=== PATIENT | male | born 1985 | race Two or more races ===

== ENCOUNTER 2016-07-28 23:16 | Emergency (ER) | payer OTHER ==
[~2016-07-28] VITALS: Ht 180.3 cm; Wt 124.7 kg
[2016-07-28] MEDS ORDERED: LEXAPRO (23:36)
[2016-07-28] MEDS ORDERED: TRAZADONE (23:36)
--- NOTE | 2016-07-28 23:38 | NUR ---
Pt biba, pt admits to heavy etoh, suspected fall. Abrasion noted to R. knee. No other trauma noted. Pt repeating multiple times " i didnt call you guys". Pt c/o RUQ pain. Pt seen by . Labs drawn and sent. Pt resting in position of comfort for self. Resp even and unlabored. No obvious signs of distress.
[2016-07-28 23:54] LABS: BASOPHILS # (AUTO) 0.1 K/uL (0.0-8.0); BASOPHILS % (AUTO) 0.5 % (0.0-2.0); EOSINOPHILS # (AUTO) 0.1 K/uL (0.0-0.7); EOSINOPHILS % (AUTO) 1.4 % (0.0-7.0); HEMATOCRIT 41.2 % (40-50); HEMOGLOBIN 13.8 G/DL (14.0-18.0); LYMPHOCYTES # (AUTO) 2.5 K/UL (0.8-4.8); MEAN CORPUSCULAR HEMOGLOBIN 28.5 UUG (27.0-31.0); MEAN CORPUSCULAR HGB CONC 34 g/dL (32.0-37.0); MEAN CORPUSCULAR VOLUME 84.8 FL (82.0-92.0); MONOCYTES % (AUTO) 9.7 % (0.0-11.0); NEUTROPHILS # (AUTO) 6.5 K/UL (1.8-8.9); NEUTROPHILS % (AUTO) 64.4 % (38.5-71.5); PLATELET COUNT (AUTO) 338 K/UL (150-450); RED BLOOD CELL COUNT(AUTO) 4.86 MIL/UL (4.7-6.1); WHITE BLOOD COUNT (AUTO) 10.2 K/UL (4.0-11.2)
[2016-07-29 00:24] LABS: *AMPHETAMINE, URINE NEGATIVE (NEGATIVE); *BARBITURATE, URINE NEGATIVE (NEGATIVE); *CANNABINOID, URINE NEGATIVE (NEGATIVE); *COCCAINE, URINE NEGATIVE (NEGATIVE); *OPIATE, URINE NEGATIVE (NEGATIVE); *PHENCYCLIDINE SCREEN,URINE NEGATIVE (NEGATIVE)
[2016-07-29 00:27] LABS: BILIRUBIN,DIRECT 0.1 mg/dL (0.0-0.2); BILIRUBIN,TOTAL 0.2 mg/dL (0.2-1.0); POTASSIUM 3.4 mmol/L (3.5-5.1); TOTAL PROTEIN, SERUM 7.9 g/dL (6.4-8.2)
--- NOTE | 2016-07-29 00:30 | NUR ---
Pt repeatedly stating " I get delirium really bad. I have seizures. I dont want to have delirium. I dunno I just start shaking and I dont want to have a seizure." Pt informed he didnt need to worry about it right now. Informed him I would be monitoring him. Pt sts " but normally they give me a banana bag or something and like ativan because librium doesnt work." Informed him that the doctor did not order anything else at this time. Pt sts "well I need ativan or something because I'm like anxious." notified pt requesting ativan.
--- NOTE | 2016-07-29 00:40 | NUR ---
Pt informed the doctor wanted his lab results before he ordered any ativan at this time.
--- NOTE | 2016-07-29 01:08 | NUR ---
Pt resting in position of comfort for self with eyes closed, appears to be sleeping. Resp even and unlabored. No obvious signs of distress at this time
[2016-07-29] MEDS ORDERED: TDAP DIPH,PERTUSS,TET VAC/PF 0.5 ML DISP.SYRIN IM ONE ×2 (01:15→02:21)
[2016-07-29] MEDS ORDERED: NEOMY/BACITRA/POLYMYXIN B OINT UD PACKET TP ONE ×2 (01:15→02:23)
--- NOTE | 2016-07-29 02:22 | NUR ---
Woke pt up. Pt able to ambulate with steady gait. Abrasion to R. knee cleansed and simple drsg applied. Pt's mother is on her way to sisal picker the pt. Pt requested to have his Left hand xrayed, feels it might be broken. No obvious deformity noted, no swelling noted, no obvious signs of trauma noted. MD notified and xray called.
--- NOTE | 2016-07-29 02:49 | NUR ---
Xrays obtained. MD reviewed and spoke with pt. Pt stable for discharge per MD. Pt given ACI. Pt verbalized understanding of dc instructions. Pt ambulated out of er with steady gait and mother to drive him home.
[2016-07-29 02:51] VITALS: BP 132/68
== END 2016-07-29 02:52 | disposition home or self-care (01) ==
LOC: ER 23:16
DX: F10.129 Alcohol abuse with intoxication, unspecified (principal); S80.211A Abrasion, right knee, initial encounter; W57.XXXA Bitten or stung by nonvenomous insect and other nonvenomous arthropods, initial encounter; Y93.89 Activity, other specified; Y92.9 Unspecified place or not applicable; Y99.9 Unspecified external cause status
CPT/HCPCS: 36415; 73130 ×2; 80048; 80076; 80307; 83690; 85025; 90471; 90715; 99285; A4663; G0480